=== PATIENT | female | born 1995 | race Caucasian/White ===

== ENCOUNTER 2019-12-08 17:24 | Outpatient (CLI) | payer OTHER | END 2019-12-08 17:25 | disposition home or self-care (01) | LOC: COV 17:24 | PROVIDERS: ATTEND Family Medicine | DX: R50.9 Fever, unspecified (principal) | CPT/HCPCS: 81599 ==

== ENCOUNTER 2020-06-11 16:19 | Outpatient (CLI) | payer OTHER | END 2020-06-11 16:20 | disposition home or self-care (01) | LOC: COV 16:19 | PROVIDERS: ATTEND Family Medicine | DX: R50.9 Fever, unspecified (principal); R05 Cough; R06.02 Shortness of breath; M79.10 Myalgia, unspecified site; R53.83 Other fatigue; J02.9 Acute pharyngitis, unspecified; R09.81 Nasal congestion; R11.0 Nausea; Z20.828 Contact with and (suspected) exposure to other viral communicable diseases ==

== ENCOUNTER 2020-09-14 21:13 | Outpatient (CLI) | payer OTHER | END 2020-09-14 21:14 | disposition home or self-care (01) | LOC: COV 21:13 | PROVIDERS: ATTEND Family Medicine | DX: R50.9 Fever, unspecified (principal); R06.02 Shortness of breath; M79.10 Myalgia, unspecified site; R53.83 Other fatigue; R07.0 Pain in throat; R19.7 Diarrhea, unspecified; R09.81 Nasal congestion; R11.0 Nausea; Z20.822 Contact with and (suspected) exposure to COVID-19 ==